=== PATIENT | female | born 1975 | race American Indian/Alaskan Native ===

== ENCOUNTER 2022-04-22 09:39 | Outpatient (CLI) | payer BC ==
--- NOTE | 2022-04-22 11:46 | XRay Report ---
BILATERAL HIPS 3 VIEWS INDICATION / CLINICAL INFORMATION: M25.551 PAIN IN RIGHT HIP / M25.552 PAIN IN LEFT HIP COMPARISON: None available. FINDINGS: BONES and JOINT(S): No acute fracture or subluxation. No significant arthritis. SOFT TISSUES: No significant abnormality. ADDITIONAL FINDINGS: None. IMPRESSION: 1. No acute findings. Signer Name: London Bateman MD Signed: 04/22/2022 11:41 AM Workstation Name: [id number]
== END 2022-04-22 09:40 | disposition home or self-care (01) ==
LOC: XRAY 09:39
PROVIDERS: ATTEND Orthopaedic Surgery
DX: M25.551 Pain in right hip (principal); M25.552 Pain in left hip
CPT/HCPCS: 73521